=== PATIENT | male | born 1955 | race Caucasian/White ===

== ENCOUNTER → 2017-07-15 | Outpatient (CLI) | payer OTHER ==
--- NOTE | 2017-07-16 07:09 | US ---
EXAMINATION TYPE: US axilla LT DATE OF EXAM: 07/15/2017 COMPARISON: NONE CLINICAL HISTORY: Contracture M62.4 Swelling R22.30. bulge seen in left axilla Left axilla scanned at area of concern. Superficial area of bulge seen- Limited due to extreme super ficial location. No masses or fluid collection seen in scanned area. Contralateral images taken. IMPRESSION: No abnormality as noted above. If suspicion is high or palpable abnormality correlate wi th MRI or CT.
== END | disposition home or self-care (01) ==
LOC: RADUSWWP 15:43
PROVIDERS: ATTEND Family Medicine
DX: R22.32 Localized swelling, mass and lump, left upper limb (principal)

== ENCOUNTER → 2018-07-06 | Outpatient (CLI) | payer OTHER ==
--- NOTE | 2018-07-06 21:20 | CT ---
EXAMINATION TYPE: CT abdomen w con DATE OF EXAM: 07/06/2018 COMPARISON: None. HISTORY: RUQ pain CT DLP: 744 mGycm, Automated Exposure Control for Dose Reduction was Utilized. CONTRAST: CT scan of the abdomen is performed with oral and with IV Contrast, patient injected with 100 mL of I sovue 300. FINDINGS: Evaluation is suboptimal as does not included through the entire iliac crests. LUNG BASES: Some respiratory motion artifact degradation is present. Coronary artery calcification is seen which is noted marker for coronary artery disease. LIVER/GB: Subcentimeter low-density lesion right hepatic lobe axial image 32 is too small to further characterize for presumed benign. PANCREAS: No significant abnormality is seen. SPLEEN: Roughly 1 cm low dense lesion posterior spleen axial image 18 is too small to further charact erize but favor benign, second lesion near hilum x-ray axial image 22 is noted just over 1 cm also fa vored benign. ADRENALS: No significant abnormality is seen. KIDNEYS: Symmetric cortical measuring uptake and excretion from both kidneys without hydronephrosis i s identified bilaterally. There is however 6 mm nonobstructing calculus left kidney mid to lower pole level axial image 35. There are calcifications centrally right kidney favoring vascular calcificatio ns with suspected to be millimeter calculus lower pole of the right kidney coronal image 67 noted. BOWEL: Oral contrast does not reach colonic level making evaluation of bowel slightly suboptimal. No suspicious small or large bowel dilatation is seen. Prominent 1.3 cm low dense lesion and jejunum lef t mid abdomen axial image 34 could reflect small bowel polyp. LYMPH NODES: No greater than 1cm abdominal lymph nodes are appreciated. OSSEOUS STRUCTURES: Moderate to severe multilevel spurring in the thoracolumbar spine is present. OTHER: There is moderate mixed plaque in the infrarenal abdominal aorta which is ectatic and mildly a neurysmal up to 3.2 cm AP diameter axial image 31. IMPRESSION: 1. No significant acute finding is seen to account for patient's clinical symptoms. 2. Abdominal aortic aneurysm up to 3.2 cm noted. 3. Bilateral nephrolithiasis without hydronephrosis or obstructing ureter calculi clearly seen.
== END | disposition home or self-care (01) ==
LOC: RADCTMAIN 17:02
PROVIDERS: ATTEND Family Medicine
DX: I71.4 Abdominal aortic aneurysm, without rupture (principal); N20.0 Calculus of kidney
CPT/HCPCS: 74160; Q9967

== ENCOUNTER → 2018-07-27 | Outpatient (CLI) | payer OTHER ==
--- NOTE | 2018-07-27 15:11 | NM ---
Nuclear medicine hepatobiliary scan. HISTORY: Pain. DOSAGE: The patient received 8 ounces and sure plus and 5.0 mCi of Technetium 99m Choletec. FINDINGS: There is normal hepatic extraction. The gallbladder is seen by 40 minutes. There is bilia ry to bowel clearance by 30 minutes. Ejection fraction is 64%. IMPRESSION: 1. Normal hepatobiliary exam
== END ==
LOC: RADNMMAIN 13:05
PROVIDERS: ATTEND Family Medicine
DX: R10.11 Right upper quadrant pain (principal)
CPT/HCPCS: 78226; A9537

== ENCOUNTER 2020-03-14 10:10 | Day surgery (SDC) | payer OTHER ==
[2020-03-06 09:01] VITALS: BMI 27.9
[~2020-03-14 10:10] MED LIST: LACTATED RINGERS 1,000 ML IV SCH; LIDOCAINE 1% (10MG/ML) FOR IV START INTRADERMA PRN; MIDAZOLAM 2 MG/2 ML VIAL IV PRN
[2020-03-14 10:30] VITALS: RESP 16; TEMP 97.8
[2020-03-14] MEDS ORDERED: LIDOCAINE 1% INJ 10MG/ML (20 ML MDV) ONE (10:51)
[2020-03-14] MEDS ORDERED: MIDAZOLAM 2 MG/2 ML VIAL ONE (10:51)
[2020-03-14] MEDS ORDERED: PROPOFOL 10 MG/ML 20 ML VIAL IV ONE (10:51)
--- NOTE | 2020-03-14 10:52 | P.GSHP ---
History of Present Illness H&P Date: 03/14/20 Chief Complaint: history of colon polyps, screening patient known to our service. His history of colon polyps on colonoscopy 5 years ago. These were adenomas. No family history of colon cancer. No bowel complaints. Past Medical History Past Medical History: Hypertension Additional Past Medical History / Comment(s): SOB,hx colon polyps History of Any Multi-Drug Resistant Organisms: None Reported Additional Past Surgical History / Comment(s): right carotid. Past Anesthesia/Blood Transfusion Reactions: No Reported Reaction Smoking Status: Current every day smoker - Past Family History Mother Family Medical History: Cancer Father Family Medical History: Cancer Medications and Allergies Home Medications Medication Instructions Recorded Confirmed Type Benazepril [Lotensin] 40 mg PO QAM 06/29/14 03/06/20 History Aspirin 81 mg PO DAILY 03/06/20 03/06/20 History Atorvastatin [Lipitor] 80 mg PO DAILY 03/06/20 03/06/20 History Calcium Carbonate/Vitamin D3 1 each PO DAILY 03/06/20 03/06/20 History [Calcium 600 mg-Vit D3 10Mcg (400 Unit)] Doxazosin [Cardura] 2 mg PO HS 03/06/20 03/06/20 History amLODIPine [Norvasc] 10 mg PO QAM 03/06/20 03/06/20 History Allergies Allergy/AdvReac Type Severity Reaction Status Date / Time No Known Allergies Allergy Verified 03/06/20 08:46 Surgical - Exam Vital Signs Temp Pulse Resp BP Pulse Ox 97.8 F 71 16 137/63 96 03/14/20 10:29 03/14/20 10:29 03/14/20 10:29 03/14/20 10:29 03/14/20 10:29 Physical exam: General: Well-developed, well-nourished HEENT: Normocephalic, sclerae nonicteric Abdomen: Nontender, nondistended Extremities: No edema Neuro: Alert and oriented Assessment and Plan (1) Colon cancer screening Narrative/Plan: Will proceed with colonoscopy Current Visit: No Status: Acute Code(s): Z12.11 - ENCOUNTER FOR SCREENING FOR MALIGNANT NEOPLASM OF COLON SNOMED Code(s): 459057002
--- NOTE | 2020-03-14 11:11 | P.PCN ---
Date of Procedure: 03/14/20 Procedure(s) Performed: PREOPERATIVE DIAGNOSIS: screening, history of polyps POSTOPERATIVE DIAGNOSIS: small rectal polyp PROCEDURE: Colonoscopy with snare polypectomy ANESTHESIA: MAC SURGEON: Waylon Ashton M.D. SPECIMENS: rectal polyp ENDOSCOPIC PROCEDURE: The patient was placed on the endoscopy table in the left decubitus position. The Olympus colonoscope was inserted into the anus and passed under direct visualization to the base of the cecum. The appendiceal orifice was visualized. From that point the scope was slowly withdrawn inspecting all surfaces carefully. There were no neoplastic inflammatory or polypoid lesions throughout the cecum, ascending, transverse, descending, and sigmoid colon. In the rectum a small polyp was seen and removed using the snare with cautery technique. The remainder of the rectum was normal. There is no visible diverticulosis. Digital rectal examination was normal. The patient was taken to the recovery room in stable condition per anesthesia guidelines. RECOMMENDATIONS: await biopsy results. plan follow-up colonoscopy 5 years.
[2020-03-14 11:44] VITALS: BP 132/77; PULSE 57
== END 2020-03-14 12:07 | disposition home or self-care (01) ==
LOC: ORWHC2ENDO 10:10
PROVIDERS: ATTEND Surgery
DX: Z12.11 Encounter for screening for malignant neoplasm of colon (principal); K62.1 Rectal polyp; I10 Essential (primary) hypertension; E78.5 Hyperlipidemia, unspecified; F17.200 Nicotine dependence, unspecified, uncomplicated; Z86.010 Personal history of colon polyps; Z98.890 Other specified postprocedural states; Z80.9 Family history of malignant neoplasm, unspecified; Z79.899 Other long term (current) drug therapy; Z79.82 Long term (current) use of aspirin; Z97.2 Presence of dental prosthetic device (complete) (partial)
CPT/HCPCS: 88305; 45385; J2250; J2001; J2704

== ENCOUNTER → 2022-09-26 | Outpatient (CLI) | payer MEDICARE, OTHER ==
--- NOTE | 2022-09-26 10:33 | US ---
EXAMINATION TYPE: US kidneys/renal and bladder DATE OF EXAM: 09/26/2022 COMPARISON: CLINICAL INDICATION: Male, 67 years old with history of R35.1 R32; Patient states he gets up a lot at night to go to the bathroom. 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 Lower pole echogenic focus with shadow= 0.8 cm Bladder: Prevoid bladder very distended and anechoic. Bilateral Jets seen Normal Post Void Residual: yes IMPRESSION: 1. Nonobstructing bilateral inferior pole renal stones.
== END | disposition home or self-care (01) ==
LOC: RADUSWWP 09:18
PROVIDERS: ATTEND Family Medicine
DX: N20.0 Calculus of kidney (principal)
CPT/HCPCS: 76770

== ENCOUNTER → 2024-09-09 | Outpatient (CLI) | payer MEDICARE ==
--- NOTE | 2024-09-09 15:46 | US ---
EXAMINATION TYPE: US kidneys/renal and bladder DATE OF EXAM: 09/09/2024 COMPARISON: US(09/26/2022) CLINICAL INDICATION: Male, 69 years old with history of R35.1 Nocturia; R35.0 Frequent urination; TECHNIQUE: Grayscale imaging of the bilateral kidneys and urinary bladder: FINDINGS: EXAM MEASUREMENTS: Right Kidney: 12.0x6.6x6.8cm Left Kidney: 11.3x6.5x5.4cm Post Void Residual Volume: 7.3mL Right Kidney: echogenic foci with posterior shadowing & twinkle artifact again seen: 0.7cm Prior measurement: 0.9cm Left Kidney: echogenic foci with posterior shadowing & twinkle artifact again seen: 0.9cm Previous measurement: 0.8cm Bladder: wnl Bilateral Jets seen: Yes Normal Post Void Residual: Yes IMPRESSION: Bilateral renal stones without hydronephrosis. [facility], , 09/09/2024 3:43 PM
== END | disposition home or self-care (01) ==
LOC: RADUSWWP 15:06
PROVIDERS: ATTEND Family Medicine
DX: N20.0 Calculus of kidney (principal); R35.1 Nocturia
CPT/HCPCS: 76770